=== PATIENT | male | born 1960 | race Caucasian/White ===

== ENCOUNTER 2018-08-28 16:37 | Emergency (ER) | payer MEDICAID ==
[~2018-08-28] VITALS: Ht 182.9 cm; Wt 81.6 kg
[2018-08-28 16:53] VITALS: BP 151/100
--- NOTE | 2018-08-28 16:56 | NUR ---
ED Nurse Note: laceration to left wrist while doing dishes. bleeding controlled at triage. bandage applied tugboat captain by pt. pt complains of 8/10 pain. pt noted to hve laceration on the left wrsit. imelda sequeira on bedside. will continue to monitor.
[2018-08-28] MEDS ORDERED: Bacitracin Oint UD TOPIC ONE ×3 (17:15→17:46)
[2018-08-28] MEDS ORDERED: Lidocaine 1% 10mg/ml/Epi 0.005mg/ml 30ml vial INJ ONE (17:15)
--- NOTE | 2018-08-28 17:20 | NUR ---
ED Nurse Note: doc sequeira on bedside doing a procedure with the pt. pt on bedside.
[2018-08-28] MEDS ORDERED: CEPHALEXIN500 MG ORAL (17:55)
[2018-08-28] MEDS ORDERED: IBUPROFEN600 MG ORAL (17:55)
[2018-08-28 18:05] VITALS: BP 151/100
--- NOTE | 2018-08-28 18:05 | NUR ---
ER DISCHARGE NOTE: Patient is cleared to be discharged per ERMD, pt is aox4, on room air, with stable vital signs. pt was given dc and prescription instructions, pt was able to verbalize understanding, pt id band removed without complications. pt is able to ambulate with steady gait. pt took all belongings.
--- NOTE | 2018-08-28 21:14 | Emergency Room Report ---
History of Present Illness General Chief Complaint: Laceration Source: Patient Present Illness HPI Pt is a 58-year-old R hand dominant male presenting for left wrist laceration. He states that he was cooking, stuck his hand in a full sink, and a knife struck the wrist. This occurred approximately one hour prior to arrival. 8/10 dull ache and does not radiate. He denies any numbness or tingling. Last tetanus shot was 2 years prior. He denies any other symptoms Allergies: Coded Allergies: No Known Allergies (Unverified , 08/28/18) Patient History Past Medical History: see triage record Pertinent Family History: none Immunizations: UTD Reviewed Nursing Documentation: PMH: Agreed; PSxH: Agreed Nursing Documentation-PMH Past Medical History: No History, Except For Hx Cancer: Yes - testicular, lung, [place] Review of Systems All Other Systems: negative except mentioned in HPI Physical Exam Vital Signs Date Time Temp Pulse Resp B/P (MAP) Pulse Ox O2 Delivery O2 Flow Rate FiO2 08/28/18 16:42 98.2 69 20 151/100 98 Room Air Sp02 EP Interpretation: reviewed, normal General Appearance: no apparent distress, alert, GCS 15, non-toxic Head: normocephalic, atraumatic Musculoskeletal: back normal, gait/station normal, normal range of motion, tender - L volar surface of forearm Neurologic: alert, oriented x3, responsive, motor strength/tone normal, sensory intact, speech normal Psychiatric: judgement/insight normal, memory normal, mood/affect normal, no suicidal/homicidal ideation Skin: normal color, no rash, warm/dry, well hydrated, laceration - 1cm linear laceration to L volar forearm Procedures Laceration/Wound Repair Laceration/Wound Repair : Consent: Verbal Wound Location: upper extremity Wound's Depth, Shape: into muscle, linear Wound Length (cm): 1 Wound Explored: clean Irrigated w/ Saline (ccs): 50 Betadine Prep?: Yes Anesthesia: 1% Lidocaine, Lidocaine w/ Epi Volume Anesthetic (ccs): 2 Wound Debrided: minimal Wound Repaired With: sutures Suture Size/Type: 5:0, nylon Number of Sutures: 2 Layer Closure?: No Sterile Dressing Applied?: Yes Sling Applied?: No Patient Tolerated: Well Complications: None Medical Decision Making PA Attestation Dr. George is my supervising physician. Patient management was discussed with my supervising physician Diagnostic Impression: Primary Impression: Laceration ER Course Vision is a 58-year-old male presenting for left wrist laceration. DDx considered but not limited to: skin Laceration, tendon laceration, muscle laceration, nerve injury, among others PE: NAD L volar surface of forearm: 1cm in diameter linear laceration. No active bleeding. Full AROM of the wrist and hand is intact. SILT The wound was irrigated with normal saline and cleaned with betadine. A 27g needle was used to administer 2mL of lidocaine w/ epi for local anaesthesia. 2 sutures were placed with 5-0 Nylon. The wound was well approximated and the patient tolerated the procedure well. The wound was then cleaned and bacitracin was applied. Pt given suture care instructions and is told to F/u with PCP within one week. Last Vital Signs Date Time Temp Pulse Resp B/P (MAP) Pulse Ox O2 Delivery O2 Flow Rate FiO2 08/28/18 18:05 98.2 69 20 151/100 98 Room Air Status: improved Disposition: HOME, SELF-CARE Condition: Improved Scripts Ibuprofen* (MOTRIN*) 600 Mg Tablet 600 MG ORAL Q8H PRN for For Pain, #30 TAB 0 Refills Prov: SUSANNAH LENZ P.AGladis 08/28/18 Cephalexin* (KEFLEX*) 500 Mg Capsule 500 MG ORAL EVERY 12 HOURS, #14 CAP 0 Refills Prov: SUSANNAH LENZ P.A. 08/28/18 Referrals: [facility] (PCP) Patient Instructions: Laceration Care, Adult Additional Instructions: I discussed my findings with the patient. All questions and concerns have been answered. Treatment and medication compliance have been addressed. I advised the patient that they need to follow up with PCP in 5-7 days for wound check and suture removal. If you are unable to see PMD, return to the EDR in 5-7 days. Return to ER if pain remains or worsens, you notice discharge from the wound, the wound continues to bleed, the suture/s fall out, you notice a fever or chills, or for any reason. Patient is advised to keep the wound clean and apply an antibacterial ointment. Patient verbalized understanding of discharge instructions. SUSANNAH LENZ Aug 28, 2018 21:14
== END 2018-08-28 18:05 | disposition home or self-care (01) ==
LOC: EMR 17:15
DX: S61.512A Laceration without foreign body of left wrist, initial encounter (principal); W26.0XXA Contact with knife, initial encounter; Y93.G3 Activity, cooking and baking; Y92.9 Unspecified place or not applicable; Z85.118 Personal history of other malignant neoplasm of bronchus and lung; Z85.47 Personal history of malignant neoplasm of testis
CPT/HCPCS: 12001; 99283; Z7502